=== PATIENT | male | born 1960 | race Caucasian/White ===

== ENCOUNTER 2023-09-02 10:46 | Emergency (ER) | payer MEDICAID ==
[~2023-09-02] VITALS: Ht 180.3 cm; Wt 119.7 kg
[2023-09-02 10:46] VITALS: BP_SYST 132; PULSE 66; RESP 18; TEMP 97.2; O2SAT 97
[2023-09-02] MEDS ORDERED: TETRACAINE HCL/PF 0.5% OPHTHALMIC DROPS 4 ML OP ONE (11:11)
[2023-09-02] MEDS ORDERED: BALANCED SALT IRRIG SOLN 15 ML IO ONE (11:11)
[2023-09-02] MEDS ORDERED: OFLO5DRO6 EACH EYE (11:37)
[2023-09-02] MEDS: PROPARACAINE (OPTHANINE 0.5%) 15 ML DROPS OP ONE (11:48)
[2023-09-02] MEDS: FLUORESCEIN SODIUM 1 MG OPHTHALMIC STRIP OP ONE (11:48)
[2023-09-02 11:49] VITALS: BP_SYST 132; PULSE 66; RESP 18; TEMP 97.2; O2SAT 97
== END 2023-09-02 11:48 | disposition home or self-care (01) ==
LOC: SED 10:46
DX: S05.02XA Injury of conjunctiva and corneal abrasion without foreign body, left eye, initial encounter (principal); Z79.899 Other long term (current) drug therapy; W22.8XXA Striking against or struck by other objects, initial encounter; Y93.89 Activity, other specified; Y92.89 Other specified places as the place of occurrence of the external cause; Y99.8 Other external cause status
CPT/HCPCS: 99283

== ENCOUNTER 2024-04-09 17:57 | Emergency (ER) | payer MEDICAID ==
[~2024-04-09] VITALS: Ht 182.9 cm; Wt 88.0 kg
[~2024-04-09 17:57] MED LIST: OFLO5DRO6 EACH EYE
[2024-04-09 18:27] VITALS: BP_SYST 121; PULSE 65; RESP 16; TEMP 97.5; O2SAT 98
[2024-04-09] MEDS: ACETAMINOPHEN 500 MG TABLET PO ONE (21:43)
[2024-04-09] MEDS: KETOROLAC TROMETHAMINE 30 MG VIAL IM ONE (21:44)
[2024-04-09 21:54] VITALS: BP_SYST 121; PULSE 65; RESP 16; TEMP 97.5; O2SAT 98
== END 2024-04-09 21:48 | disposition home or self-care (01) ==
LOC: SED 17:57
DX: M17.11 Unilateral primary osteoarthritis, right knee (principal); E07.9 Disorder of thyroid, unspecified
CPT/HCPCS: 99283; 73564; 96372; J1885